=== PATIENT | female | born 1975 | race Caucasian/White ===

== ENCOUNTER 2019-02-04 06:28 | Day surgery (SDC) | payer OTHER ==
[~2019-02-04 06:28] MED LIST: PROAIR HFA8.5 GM IH; SINGULAIR 10MG10 MG PO; SYMBICORT 16010.2 GM IH
== END 2019-02-04 13:30 | disposition home or self-care (01) ==
LOC: CIR.AMB 06:28
DX: N84.0 Polyp of corpus uteri (principal)